=== PATIENT | male | born 1990 | race Caucasian/White ===

== ENCOUNTER 2019-01-01 18:56 | Emergency (ER) | payer OTHER ==
[~2019-01-01] VITALS: Ht 180.3 cm; Wt 72.6 kg
--- NOTE | 2019-01-01 19:15 | NUR ---
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 pt reports hearing crunching sound when elbowed. states mild dyspnea and pain started today. ao4. nad. vss. ambulatory with steady gait
[2019-01-01 19:18] VITALS: BP 129/73
--- NOTE | 2019-01-01 19:39 | NUR ---
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
--- NOTE | 2019-01-01 19:52 | Emergency Room Report ---
History of Present Illness General Chief Complaint: Pain Source: Patient Present Illness HPI 28-year-old male presents to the emergency department complaining of 8 out of 10 severity right-sided rib tenderness and pain with deep breaths or coughing x3 days. Patient reports he was playing basketball and got elbowed in the ribs at the site of where he is experiencing pain. Patient also reports that he felt a cracking sensation. Patient reports that he is a smoker denies history of asthma or COPD. Patient denies fevers, chills, recent illness or hemoptysis. He denies bruising he reports he took 800 mg ibuprofen without relief. Denies any other aggravating or relieving factors at this time. Denies palpitations, dizziness or sputum production. Allergies: Coded Allergies: No Known Allergies (Unverified , 01/01/19) Patient History Past Medical History: see triage record Past Surgical History: none Social History: Reports: smoking Reviewed Nursing Documentation: PMH: Agreed; PSxH: Agreed Nursing Documentation-PMH Past Medical History: No Stated History Review of Systems All Other Systems: negative except mentioned in HPI Physical Exam Vital Signs Date Time Temp Pulse Resp B/P (MAP) Pulse Ox O2 Delivery O2 Flow Rate FiO2 01/01/19 19:06 98.2 81 20 129/73 (91) 97 Room Air Sp02 EP Interpretation: reviewed, normal General Appearance: no apparent distress, alert, GCS 15, non-toxic Head: normocephalic, atraumatic Eyes: bilateral eye normal inspection, bilateral eye PERRL ENT: hearing grossly normal, normal voice Neck: full range of motion Respiratory: lungs clear, normal breath sounds, no rhonchi, no respiratory distress, no accessory muscle use, no wheezing, other - TTP to the anterior right lower ribs, No flail chest. no bruises Cardiovascular #1: regular rate, rhythm Gastrointestinal: non tender, soft Rectal: deferred Genitourinary: normal inspection Musculoskeletal: back normal, normal range of motion, gait/station normal, non- tender Neurologic: alert, motor strength/tone normal, oriented x3, sensory intact, responsive, speech normal Psychiatric: judgement/insight normal Lymphatic: no adenopathy Medical Decision Making PA Attestation Dr. Tipton is my supervising Physician whom patient management has been discussed with. Diagnostic Impression: Primary Impression: Contusion of rib on right side Qualified Codes: S20.211A - Contusion of right front wall of thorax, initial encounter ER Course 28-year-old male presents to the emergency department complaining of 8 out of 10 severity right-sided rib tenderness and pain with deep breaths or coughing x3 days. Patient reports he was playing basketball and got elbowed in the ribs at the site of where he is experiencing pain. Patient also reports that he felt a cracking sensation. Patient reports that he is a smoker denies history of asthma or COPD. Patient denies fevers, chills, recent illness or hemoptysis. He denies bruising he reports he took 800 mg ibuprofen without relief. Denies any other aggravating or relieving factors at this time. Denies palpitations, dizziness or sputum production. Ddx considered but are not limited to Fracture, dislocation, contusion, Sprain/ Strain/Spasm Vital signs: are WNL, pt. is afebrile H&PE are most consistent with musculoskeletal injury will perform imaging to r/ o fractures/dislocations. ORDERS: - X-ray Right rib series with PA view - negative for fx, Dislocation, or significant soft tissue injury, per preliminary read in ED, and signed by ALDO Nation, my supervising physician has reviewed, and agrees with my interpretation. ED INTERVENTIONS: - Tylenol PO DISCHARGE: At this time pt. is stable for d/c to home. Will provide printed patient care instructions, and any necessary prescriptions. Care plan and follow up instructions have been discussed with the patient prior to discharge. Other X-Ray Diagnostic Results Other X-Ray Diagnostic Results : X-Ray ordered: Right Rib series with PA # of Views/Limited Vs Complete: 3 View Indication: Pain EP Interpretation: Yes PA Xray: Interpretation reviewed, by supervising MD, and agrees with findings. Interpretation: no dislocation, no soft tissue swelling, no fractures Impression: No acute disease Electronically Signed by: Lilian Nation Last Vital Signs Date Time Temp Pulse Resp B/P (MAP) Pulse Ox O2 Delivery O2 Flow Rate FiO2 01/01/19 19:18 98.2 81 20 129/73 97 Room Air Disposition: HOME, SELF-CARE Condition: Stable Scripts Acetaminophen* (TYLENOL EXTRA STRENGTH*) 500 Mg Tablet 500 MG ORAL Q6H, #30 TAB 0 Refills Prov: Lilian Nation 01/01/19 Referrals: [facility]ERR[facility] (PCP) Patient Instructions: Rib Contusion Additional Instructions: Take medications as directed. Follow up with a Primary Care Provider in 3-5 days, even if your symptoms have resolved. --Please review list of primary care clinics, if you do not already have a primary care provider Return sooner to ED if new symptoms occur, or current symptoms become worse. - Please note that this Emergency Department Report was dictated using [employer] pusher technology software, occasionally this can lead to erroneous entry secondary to interpretation by the dictation equipment. Lilian Nation Jan 01, 2019 19:52
--- NOTE | 2019-01-01 20:06 | NUR ---
ED Nurse Note: patient back from imaging. resting comfortably in bed with no acute distress. patient reports relief of pain after medication. awaiting imaging results
--- NOTE | 2019-01-01 20:10 | Diagnostic Imaging Report ---
Indication: Pain, trauma Technique: One view of the chest, 2 views of the right ribs Comparison: none Findings: Chest demonstrates clear lungs, no infiltrates, effusions, or congestion. Normal heart size. Rib images demonstrate no evidence of fracture. Impression: Negative This agrees with the preliminary interpretation provided overnight by [facility] service.
[2019-01-01] MEDS ORDERED: TYLENOL EXTRA500 MG ORAL (20:36)
[2019-01-01 20:42] VITALS: BP 129/73
--- NOTE | 2019-01-01 20:42 | NUR ---
ER DISCHARGE NOTE: Patient is cleared to be discharged per ERMD, pt is aox4, on room air, with stable vital signs. pt was given dc and prescription instructions, pt was able to verbalize understanding, pt id band removed. pt is able to ambulate with steady gait. pt took all belongings.
== END 2019-01-01 20:42 | disposition home or self-care (01) ==
LOC: EMR 19:20
DX: S20.211A Contusion of right front wall of thorax, initial encounter (principal); F17.200 Nicotine dependence, unspecified, uncomplicated; W50.0XXA Accidental hit or strike by another person, initial encounter; Y93.67 Activity, basketball; Y92.9 Unspecified place or not applicable
CPT/HCPCS: 71101; Z7502; 99283

== ENCOUNTER 2019-01-19 19:24 | Emergency (ER) | payer OTHER ==
[~2019-01-19] VITALS: Ht 180.3 cm; Wt 72.6 kg
[~2019-01-19 19:24] MED LIST: TYLENOL EXTRA500 MG ORAL
[2019-01-19 19:32] VITALS: BP 132/73
--- NOTE | 2019-01-19 19:32 | NUR ---
ED Nurse Note: Patient walked in to ed c/o hematuria x 1 day. Reports pain on right lower abdomen. Has history kidney stones. Denies any pain while urinating. No SOB. Breathing even and unlabored. VSS.
--- NOTE | 2019-01-19 19:40 | NUR ---
ED Nurse Note: EUSEBIO ta bedside.
[2019-01-19] MEDS ORDERED: Omnipaque-300 100ml vial INJ PRN (19:45)
--- NOTE | 2019-01-19 19:55 | NUR ---
ED Nurse Note: IV line established. Blood and urine specimen collected and sent to lab.
[2019-01-19 20:16] LABS: APPEARANCE,URINE CLOUDY; BASOPHILS % (AUTO) 0.8 % (0.0-2.0); BILIRUBIN, URINE NEGATIVE (NEGATIVE); COLOR,URINE PALE YELLOW; GLUCOSE, URINE (UA) NEGATIVE (NEGATIVE); HEMATOCRIT 42.4 % (42.0-52.0); HEMOGLOBIN 15.5 G/DL (14.2-18.0); KETONES,URINE NEGATIVE (NEGATIVE); LEUKOCYTE ESTERASE ,URINE NEGATIVE (NEGATIVE); LYMPHOCYTES % (AUTO) 32.7 % (20.0-45.0); MEAN CORPUSCULAR VOLUME 80 FL (80-99); MONOCYTES % (AUTO) 6.8 % (1.0-10.0); NEUTROPHILS % (AUTO) 57.7 % (45.0-75.0); NITRITE,URINE NEGATIVE (NEGATIVE); PH,URINE 7 (4.5-8.0); PLATELET COUNT 263 K/UL (150-450); PROTEIN,URINE 1+ (NEGATIVE); RED CELL DISTRIBUTION WIDTH 9.5 % (11.6-14.8); UROBILINOGEN,URINE NORMAL MG/DL (0.0-1.0); WHITE BLOOD COUNT 8.8 K/UL (4.8-10.8)
[2019-01-19 20:22] LABS: ANION GAP 11 mmol/L (5-15); BLOOD UREA NITROGEN 20 mg/dL (7-18); CALCIUM 8.9 MG/DL (8.5-10.1); CARBON DIOXIDE 24 MMOL/L (21-32); CHLORIDE 110 MMOL/L (98-107); CREATININE 0.9 MG/DL (0.55-1.30); POTASSIUM 3.9 MMOL/L (3.5-5.1); SODIUM 145 MMOL/L (136-145)
[2019-01-19 20:27] LABS: ALANINE AMINOTRANSFERASE 22 U/L (12-78); ALBUMIN 4.2 G/DL (3.4-5.0); ALBUMIN/GLOBULIN RATIO 1.4 (1.0-2.7); ALKALINE PHOSPHATASE 97 U/L (46-116); ASPARTATE AMINO TRANSFERASE 14 U/L (15-37); BILIRUBIN,TOTAL 0.7 MG/DL (0.2-1.0)
--- NOTE | 2019-01-19 20:47 | NUR ---
ED Nurse Note: Pt taken to CT.
--- NOTE | 2019-01-19 21:03 | NUR ---
ED Nurse Note: Pt came back from CT.
--- NOTE | 2019-01-19 21:22 | Diagnostic Imaging Report ---
Clinical Indication: Hematuria x1 day, pain in right lower abdomen, history kidney stones Technique: No oral contrast utilized, per emergency room physician request IV administration nonionic contrast. Venous phase spiral acquisition obtained through the abdomen and pelvis. Multiplanar reconstructions were generated. Total dose length product 862 mGycm. CTDIvol(s) 14 mGy. Dose reduction achieved using automated exposure control Comparison: none Findings: There are what appear to be 2 contiguous calculi versus a single complex calculus in the right renal pelvis just above the ureteropelvic junction. This measures 8 mm long axis dimension. There is mild fullness right renal collecting system. There is some prominent urothelial enhancement of the renal pelvis. There is very slightly striated renal enhancement pattern bilaterally, but suspect that this is physiologic related to phase of contrast enhancement.. There is mild right proximal hydroureter. However, no ureteral calculus is demonstrated. No intrarenal calculi are demonstrated. No left renal or ureteral calculi, hydronephrosis, or hydroureter demonstrated. No definite focal renal abnormality. The liver demonstrate fatty infiltration in the usual location adjacent to the falciform ligament., gallbladder, bile ducts, pancreas are unremarkable. The spleen measures 13 cm long axis dimension. The adrenals are unremarkable. No retroperitoneal or mesenteric mass or adenopathy. No pelvic mass or adenopathy. The rectum is mildly distended with stool. No evidence of colonic diverticulosis or diverticulitis. The appendix is normal. Focally prominent possibly slightly thick walled small bowel loops are seen in the left upper quadrant. No definite transition point.. No free or loculated peritoneal gas or fluid is evident. Impression: 8 mm calculus versus 2 contiguous calculi in the right renal pelvis. This does not appear to result in significant obstruction. However, prominent urothelial enhancement may indicate pyelitis Slightly striated renal parenchymal enhancement pattern bilaterally. Suspected physiologic related to phase of contrast enhancement, but the possibility of nephritis should be considered. Slightly prominent jejunal loops, of doubtful significance but the possibility of enteritis should be considered Incidental finding focal fatty infiltration in the liver Upper limits of normal spleen size This agrees with the preliminary interpretation provided overnight by [facility] service. The CT scanner at [facility] is accredited by the [employer] and the scans are performed using protocols designed to limit radiation exposure to as low as reasonably achievable to attain images of sufficient resolution adequate for diagnostic evaluation.
--- NOTE | 2019-01-19 21:26 | Emergency Room Report ---
History of Present Illness General Chief Complaint: Male Urogenital Problems Source: Patient Present Illness HPI 28-year-old male with history of right-sided renal stone x1 year, history of alcohol abuse now sober x6 months, and opiate abuse now sober x6 months here with mom complaining of new onset of hematuria that started this morning. Patient reports that he is currently in a rehab center and had a psychiatrist. Denies taking any daily medication. Denies fever and chills, nausea vomiting, painful urination, urinary frequency. Reports that he started having gross hematuria this morning. Reports that he had unprotected intercourse few days ago however denies penile discharge. Does not want to take prophylactic treatment for STDs. Wants to be tested. Allergies: Coded Allergies: No Known Allergies (Unverified , 01/01/19) Patient History Past Medical History: see triage record Past Surgical History: none Pertinent Family History: none Immunizations: UTD Reviewed Nursing Documentation: PMH: Agreed; PSxH: Agreed Nursing Documentation-PMH Past Medical History: No History, Except For Review of Systems All Other Systems: negative except mentioned in HPI Physical Exam Vital Signs Date Time Temp Pulse Resp B/P (MAP) Pulse Ox O2 Delivery O2 Flow Rate FiO2 01/19/19 19:27 98.4 79 14 132/73 (92) 98 Room Air Sp02 EP Interpretation: reviewed, normal General Appearance: no apparent distress, alert, GCS 15, non-toxic Head: normocephalic, atraumatic Eyes: bilateral eye normal inspection, bilateral eye PERRL ENT: hearing grossly normal, normal pharynx, no angioedema, normal voice Neck: full range of motion, supple, supple/symm/no masses Respiratory: chest non-tender, lungs clear, normal breath sounds, no rhonchi, no wheezing, speaking full sentences Cardiovascular #1: regular rate, rhythm, no edema, no murmur, normal capillary refill Gastrointestinal: normal bowel sounds, non tender, soft, no mass, no organomegaly, no peritonitis Genitourinary: no CVA tenderness Musculoskeletal: back normal, no calf tenderness Neurologic: alert, motor strength/tone normal, oriented x3, sensory intact, responsive, speech normal Psychiatric: judgement/insight normal, memory normal, mood/affect normal, no suicidal/homicidal ideation Skin: no rash Lymphatic: no adenopathy Medical Decision Making PA Attestation All diagnoses and treatment plans were reviewed and discussed with my supervising physician Dr. Solano Diagnostic Impression: Primary Impression: Kidney stone on right side ER Course 28-year-old male with history of right-sided renal stone x1 year, history of alcohol abuse now sober x6 months, and opiate abuse now sober x6 months here with mom complaining of new onset of hematuria that started this morning. Patient reports that he is currently in a rehab center and had a psychiatrist. Denies taking any daily medication. Denies fever and chills, nausea vomiting, painful urination, urinary frequency. Reports that he started having gross hematuria this morning. Reports that he had unprotected intercourse few days ago however denies penile discharge. Does not want to take prophylactic treatment for STDs. Wants to be tested. Ddx considered but are not limited to: appendicitis, cholecystis, gastritis, gastroenteritis, UTI, pyelonephritis, obstructive renal stone, nonobstructive renal stone Vital signs: are WNL, pt. is afebrile H&PE are most consistent with: Nonobstructive renal stone ORDERS: abdominal CT, abdominal pain set, Flomax, ibuprofen ED INTERVENTIONS: NS bolus, Zofran DISCHARGE: At this time pt. is stable for d/c to home. Will provide printed patient care instructions, and any necessary prescriptions. Care plan and follow up instructions have been discussed with the patient prior to discharge. Patient follow-up with urologist, patient has an established family physician and will follow-up. Also advised him to return to emergency room worsening symptoms. CT/MRI/US Diagnostic Results CT/MRI/US Diagnostic Results : Imaging Test Ordered: CT abd pelvis Impression 9 x 4 x 6 mm stone in right renal pelvis. There is mild dilatation of right renal pelvis without calyceal dilatation and there is mild urothelial prominence of right renal pelvis. Stone does not appear obstructing at this time , but intermittent obstruction should be considered. Mild scarring of left kidney. Probable focal fatty infiltration along falciform ligament. Solid organs otherwise unremarkable. Gallbladder is unremarkable. No biliary ductal dilatation. Normal appendix. No free air or free fluid. No bowel obstruction. Last Vital Signs Date Time Temp Pulse Resp B/P (MAP) Pulse Ox O2 Delivery O2 Flow Rate FiO2 01/19/19 19:32 98.4 87 14 132/73 98 Room Air Disposition: HOME, SELF-CARE Condition: Stable Scripts Ibuprofen (Ibu) 800 Mg Tablet 800 MG PO TID, #30 TAB Prov: Amador Chiu 01/19/19 Tamsulosin HCl (Flomax) 0.4 Mg Cap.er.24h 0.4 MG ORAL DAILY for 5 Days, #5 CAP Prov: Amador Chiu 01/19/19 Patient Instructions: Kidney Stones, [id number] Additional Instructions: Take medication as directed, follow-up with a urologist, worsening symptoms return to the emergency room. Increase oral hydration Amador Chiu Jan 19, 2019 21:26
[2019-01-19] MEDS ORDERED: FLOMAX0.4 MG ORAL (21:29)
[2019-01-19] MEDS ORDERED: IBU800 MG PO (21:29)
[2019-01-19 21:37] VITALS: BP 129/69
--- NOTE | 2019-01-19 21:37 | NUR ---
ED Nurse Note: Pt cleared by ERMD for discharge. DC instructions/prescription was given and explained to pt and verbalized understanding of teachings. All medical deviecs such as ID band and IV line removed. Pt is AAO x4, ambulatory and left with all personal belongings. Accompanied by family members.
== END 2019-01-19 21:37 | disposition home or self-care (01) ==
LOC: EMR 21:20
DX: N20.0 Calculus of kidney (principal)
CPT/HCPCS: 36415; 74177; 80053; 80307; 81003; 83690; 85025; 96361; 96374; J2405; J7030; Q9967; Z7502; 99284

== ENCOUNTER 2019-04-23 02:51 | Emergency (ER) | payer OTHER ==
[~2019-04-23] VITALS: Ht 180.3 cm; Wt 73.9 kg
[~2019-04-23 02:51] MED LIST changes: +FLOMAX0.4 MG ORAL; +IBU800 MG PO
[2019-04-23 03:00] VITALS: BP 136/69
--- NOTE | 2019-04-23 03:00 | NUR ---
ED Nurse Note: Pt walked into ED from rehab facility for c/o flu like symptoms x 2 days, worse today. Pt reports body aches, headache, congestion, nausea, decreased appetite, sore throat and weakness. Pt denies any recent travel. No SOB. Pt is aaox4, no cardiac or respiratory distress noted. Will continue to monitor.
--- NOTE | 2019-04-23 03:10 | Emergency Room Report ---
History of Present Illness General Chief Complaint: Flu Like Symptoms Source: Patient Present Illness HPI Disclaimer: Please note that this report is being documented using [employer] technology. This can lead to erroneous entry secondary to incorrect interpretation by the dictating instrument. HPI: 28-year-old male presents for evaluation of congestion, sore throat, cough and body aches. Symptoms began 1 to 2 days ago. He notes generally worsening diffuse body aches, nasal congestion, sore throat. He has a slight cough which began today. He denies fevers or chills. Denies nausea, vomiting or diarrhea. Denies rash. Did not receive a flu shot this year. Has not taken any medication prior to arrival. PMH: Alcohol abuse, kidney stones PSH: Reviewed Allergies: Denies Social Hx: Former alcohol abuse and rehab Allergies: Coded Allergies: No Known Allergies (Unverified , 04/23/19) Review of Systems All Other Systems: negative except mentioned in HPI Physical Exam Vital Signs Date Time Temp Pulse Resp B/P (MAP) Pulse Ox O2 Delivery O2 Flow Rate FiO2 04/23/19 02:53 98.2 96 18 136/69 (91) 96 Room Air General: Awake and alert, no acute distress, afebrile HEENT: NC/AT. EOMI. PERRLA. Noninjected sclera. Uvula midline. Pharynx is erythematous but no edema, no exudate, no vesicles. Moist mucous membranes Neck: Supple, trachea midline, no lymphadenopathy Cardiovascular: RRR. S1 and S2 normal. No murmur appreciated Resp: Normal work of breathing. No cough, wheezing or crackles appreciated Abdomen: Abdomen is soft, nondistended. Nontender Skin: Intact. No abrasions, laceration or rash over the exposed skin MSK: Normal tone and bulk. Moving all extremities. No obvious deformity. Neuro: Awake and alert. Mentating appropriately. Medical Decision Making Diagnostic Impression: Primary Impression: Influenza-like symptoms ER Course 28-year-old male presents for evaluation of body aches, upper respiratory symptoms and cough. Patient presentation was consistent with a viral syndrome, possibly influenza though pneumonia, bronchitis, pharyngitis, sinusitis are also on the differential. Chest x-ray was ordered as were flu swabs but I do not believe the patient requires emergent blood work at this time. Chest x-ray shows no obvious consolidations. Influenza swabs returned negative. Patient be treated symptomatically with NSAIDs and decongestants. He can follow-up on an outpatient basis with PMD/clinic. Can return with new or worsening symptoms. Microbiology Date/Time Source Procedure Growth Status 04/23/19 03:05 Nasal Nares - Final Complete 04/23/19 03:05 Nasal Nares - Final Complete Chest X-Ray Diagnostic Results Chest X-Ray Diagnostic Results : Chest X-Ray Ordered: Yes # of Views/Limited/Complete: 1 View Indication: Shortness of Breath EP Interpretation: Yes Interpretation: no consolidation, no effusion, no pneumothorax, no acute cardiopulmonary disease Impression: No acute disease Electronically Signed by: Electronically signed by Dr. Jaleel Solano Last Vital Signs Date Time Temp Pulse Resp B/P (MAP) Pulse Ox O2 Delivery O2 Flow Rate FiO2 04/23/19 02:53 98.2 96 18 136/69 (91) 96 Room Air Disposition: HOME, SELF-CARE Condition: Stable Scripts Guaifenesin* (GUAIFENESIN*) 100 Mg/5 Ml Liquid 5 ML ORAL Q6H PRN for For Cough, #120 ML 0 Refills Prov: Jaleel Solano MD 04/23/19 Ibuprofen* (MOTRIN*) 600 Mg Tablet 600 MG ORAL Q8H PRN for For Pain, #30 TAB 0 Refills Prov: Jaleel Solano MD 04/23/19 Acetaminophen* (TYLENOL EXTRA STRENGTH*) 500 Mg Tablet 500 MG ORAL Q8H PRN for Prn Headache/Temp > 101, #30 TAB 0 Refills Prov: Jaleel Solano MD 04/23/19 Referrals: [facility] (PCP) Jaleel Solano MD Apr 23, 2019 03:10
[2019-04-23] MEDS ORDERED: IBUPROFEN600 MG ORAL (03:15)
[2019-04-23] MEDS ORDERED: Acetaminophen 500mg (ES) tab ORAL ONE (03:15)
[2019-04-23] MEDS ORDERED: TYLENOL EXTRA500 MG ORAL (03:15)
--- NOTE | 2019-04-23 03:17 | NUR ---
ED Nurse Note: RECEIVED VERBAL ORDER FOR ZOFRAN 4MG ODT; NOTED AND CARRIED OUT.
[2019-04-23] MEDS ORDERED: GUAIFENESI100 MG/5 M ORAL (03:44)
[2019-04-23 03:55] VITALS: BP 135/71
--- NOTE | 2019-04-23 09:04 | Diagnostic Imaging Report ---
Indication: Cough Technique: One view of the chest Comparison: none Findings: Lungs and pleural spaces are clear. Heart size is normal. Impression: No acute process
== END 2019-04-23 03:55 | disposition home or self-care (01) ==
LOC: EMR 03:04
DX: J11.1 Influenza due to unidentified influenza virus with other respiratory manifestations (principal)
CPT/HCPCS: 71045; 86710; Z7502; 99283